=== PATIENT | male | born 1955 | race African-American/Black ===

== ENCOUNTER 2019-12-10 22:34 | Emergency (ER) | payer OTHER ==
[~2019-12-10] VITALS: Ht 182.9 cm; Wt 112.5 kg
[~2019-12-10 22:34] MED LIST: BYSTOLIC10 MG PO; CIALIS5 MG PO; CYMBALTA20 MG PO; TOPROL XL50 MG PO
--- NOTE | 2019-12-10 23:56 | Emergency Department Note ---
History of Present Illnes History of Present Illness Chief Complaint: Respiratory History of Present Illness This is a 64 year old male PRESENTS TO THE ER C/O INTERMITTENT SOB "FOR THE PAST COUPLE OF WEEKS"; PT DENIES CP OR SOB AT THIS TIME; PT WAS SEEN AT DR. AKINS'S TODAY AND TESTED FOR COVID-19 AND PENDING RESULTS; NAD NOTED AT THIS TIME. PT ALSO REPORTS A MILD DRY COUGH FOR PAST 2 WEEKS. Historian: Patient Arrival Mode: Car Onset (how long ago): week(s) (2) Location: LUNGS Quality: SOB Radiation: Reports non-radiation Severity: mild Onset quality: gradual Duration (how long): week(s) (2) Timing of current episode: intermittent Progression: waxing and waning Chronicity: new Context: Denies recent illness, Denies recent surgery Relieving factors: none Exacerbating factors: none Associated symptoms: Reports cough (DRY) (LEWIS BUCKNER MD) Past Medical/Family History Physician Review I have reviewed the patient's past medical and family history. Any updates have been documented here. (LEWIS BUCKNER MD) Past Medical History Recent Fever: No Clinical Suspicion of Infectio: No New/Unexplained Change in Ment: No Past Medical History: Hypertension Other Medical History: GOUTS (LEWIS BUCKNER MD) Social History Smoking Cessation: Never Smoker Alcohol Use: None Any Illegal Drug Use: No (LEWIS BUCKNER MD) Family History Family history of heart diseas: No (LEWIS BUCKNER MD) Other Last Tetanus: UTD (LEWIS BUCKNER MD) Review of Systems Review of Systems Constitutional: Reports no symptoms EENTM: Reports no symptoms Cardiovascular: Reports no symptoms Respiratory: Reports as per HPI Gastrointestinal: Reports no symptoms Genitourinary: Reports no symptoms Musculoskeletal: Reports no symptoms Integumentary: Reports no symptoms Neurological: Reports no symptoms Psychological: Reports no symptoms Endocrine: Reports no symptoms Hematological/Lymphatic: Reports no symptoms (LEWIS BUCKNER MD) Physical Exam Related Data Allergies: Coded Allergies: No Known Allergies (Unverified , 05/27/13) Triage Vital Signs Vital Signs Date Time Temp Pulse Resp B/P (MAP) Pulse Ox O2 Delivery O2 Flow Rate FiO2 12/10/19 23:39 99.7 63 20 108/73 97 Room Air Vital signs reviewed: Yes (LEWIS BUCKNER MD) Physical Exam CONSTITUTIONAL Constitutional: Present well-developed, Present well-nourished HENT HENT: Present normocephalic, Present atraumatic, Present oropharynx clear/moist, Present nose normal HENT L/R: Present left ext ear normal, Present right ext ear normal EYES Eyes: Reports PERRL, Reports conjunctivae normal NECK Neck: Present ROM normal PULMONARY Pulmonary: Present effort normal, Present breath sounds normal CARDIOVASCULAR Cardiovascular: Present regular rhythm, Present heart sounds normal, Present capillary refill normal, Present normal rate GASTROINTESTINAL Abdominal: Present soft, Present nontender, Present bowel sounds normal GENITOURINARY Genitourinary: Present exam deferred SKIN Skin: Present warm, Present dry MUSCULOSKELETAL Musculoskeletal: Present ROM normal NEUROLOGICAL Neurological: Present alert, Present oriented x 3, Present no gross motor or sensory deficits PSYCHOLOGICAL Psychological: Present mood/affect normal, Present judgement normal (LEWIS BUCKNER MD) Results Laboratory Laboratory Laboratory Tests Test 12/11/19 01:10 White Blood Count 5.64 x10e3/uL (4.8-10.8) Red Blood Count 5.06 x10e6/uL (4.3-5.7) Hemoglobin 14.7 g/dL (14.0-18.0) Hematocrit 42.2 % (38.2-49.6) Mean Corpuscular Volume 83.4 fL (81-99) Mean Corpuscular Hemoglobin 29.1 pg (28-32) Mean Corpuscular Hemoglobin Concent 34.8 g/dL (31-35) Red Cell Distribution Width 13.0 % (11.7-14.4) Platelet Count 289 x10e3/uL (140-360) Neutrophils (%) (Auto) 77.3 % (38.7-80.0) Lymphocytes (%) (Auto) 14.9 % (18.0-39.1) Monocytes (%) (Auto) 7.4 % (4.4-11.3) Eosinophils (%) (Auto) 0.0 % (0.0-6.0) Basophils (%) (Auto) 0.0 % (0.0-1.0) Neutrophils # (Auto) 4.4 (2.1-6.9) Lymphocytes # (Auto) 0.8 (1.0-3.2) Monocytes # (Auto) 0.4 (0.2-0.8) Eosinophils # (Auto) 0.0 (0.0-0.4) Basophils # (Auto) 0.0 (0.0-0.1) Absolute Immature Granulocyte (auto 0.02 x10e3/uL (0-0.1) D-Dimer Quantitative (PE/DVT) 1.84 ug/mLFEU (0.00-0.45) Sodium Level 130 mmol/L (136-145) Potassium Level 5.1 mmol/L (3.5-5.1) Chloride Level 96 mmol/L (98-107) Carbon Dioxide Level 22 mmol/L (22-29) Anion Gap 17.1 mmol/L (8-16) Blood Urea Nitrogen 15 mg/dL (7-26) Creatinine 1.27 mg/dL (0.72-1.25) Estimat Glomerular Filtration Rate > 60 ML/MIN (60-) BUN/Creatinine Ratio 12 (6-25) Glucose Level 100 mg/dL (74-118) Calcium Level 9.1 mg/dL (8.4-10.2) Total Bilirubin 0.6 mg/dL (0.2-1.2) Aspartate Amino Transf (AST/SGOT) 61 IU/L (5-34) Alanine Aminotransferase (ALT/SGPT) 49 IU/L (0-55) Alkaline Phosphatase 56 IU/L (40-150) Creatine Kinase 201 IU/L (30-200) Creatine Kinase MB 0.80 ng/mL (0-5.0) Troponin I 0.028 ng/mL (0-0.300) Total Protein 8.2 g/dL (6.5-8.1) Albumin 2.8 g/dL (3.5-5.0) Globulin 5.4 g/dL (2.3-3.5) Albumin/Globulin Ratio 0.5 (0.8-2.0) Lab results reviewed: Yes Laboratory comments PT WITH ELEVATED D-DIMER (LEWIS BUCKNER MD) Imaging Imaging results reviewed: Yes Impressions EXAMINATION: CHEST SINGLE (PORTABLE) INDICATION: Short of breath, cough COMPARISON: None FINDINGS: TUBES and LINES: None. LUNGS: Normal lung volumes. Scattered bilateral patchy airspace opacities No consolidations. PLEURA: No pleural effusion or pneumothorax. HEART AND MEDIASTINUM: The cardiomediastinal silhouette is unremarkable. BONES AND SOFT TISSUES: No acute osseous lesion. Soft tissues are unremarkable. UPPER ABDOMEN: No free air under the diaphragm. IMPRESSION: Findings compatible with multifocal viral pneumonia. Signed by: Pastor Bishop DO on 12/11/2019 1:49 AM Dictated By: PASTOR BISHOP DO 8 Transcribed By: MANJULA on 12/11/19148 (LEWIS BUCKNER MD) Procedures 12 Lead ECG Interpretation ECG Interpretation : ECG: ECG 1 National Account Director: Interpreted by ED physician Date: Dec 10, 2019 Time: 23:46 Rhythm: sinus rhythm Rate: normal BPM: 63 QRS axis: normal ST segments normal: Yes T waves normal: Yes Other findings: no other findings Clinical Impression: normal ECG (LEWIS BUCKNER MD) Assessment & Plan Medical Decision Making MDM PT WITH INTERMITTENT SOB WITH DRY COUGH FOR PAST 2 WEEKS, HAD COVID TEST DONE AT PCP OFFICE TODAY AWAITING RESULTS CBC,CMP, D-DIMER, EKG, CARDIAC ENZYMES, CXR ORDERED TO EVAL FOR MYOCARDIAL INFARCTION, PNEUMONIA, PULMONARY EMBOLISM, ELECTROLYTE ABNORMALITY, PT WITH POSITIVE D-DIMER, CT CHEST PE PROTOCOL ORDERED TO EVAL FOR PULMONARY EMBOLISM [address] ROMAN PENDING ADMISSION OR TRANSFER PENDING BED SITUATION (LEWIS BUCKNER MD) EUNICE Valentine obtained from Dr. Buckner, patient noted to require 2 L of supplemental oxygen in the setting with hypoxia likely due to Covid pneumonia. Case management consult emergency department done. Patient discharged home on home O2. Strict red flags to return given includin. You have been diagnosed with COVID 19 pneumonia. Most patients have mild symptoms and can be treated at home. Expect symptoms to last for 1 2 more we eks. 2. At his stage the treatment is oxygen support and a steroid, named Dexamethasone. 3. The level of oxygen prescribed for home is in Liters per minute (LPM). That means the amount of oxygen (in liters) that flows through the plastic tubing over a one minute period. Home oxygen systems typically can provide up to 5 LPM. You have been prescribed 2 LPM for home. It is very important to know that oxygen is flammable. So the oxygen cannot be within 8 feet of a flame including from cigarettes. 4. It is important to know that dexamethasone can increase blood sugars and blood pressure as well as make some patients feel hyper or cause sleeplessness. So please monitor your blood sugar or blood pressure over the time you are taking. Please notify your doctor if those values increase substantially. 5. Oxygen saturation is a measure of how much oxygen is in your blood. A good level is > 94 %. A bad level is < 90 %. 6. You will be given an Oxygen monitor to test your oxygen 4 X per day and if you feel short of breathe. 7. If you oxygen level goes below 90 % call 911 immediately or come to the ED. As well for low oxygen you can increase the oxygen to 5 LPM until you get phone or ED help. If you think there is something wrong with the oxygen supply call the company that provided the Oxygen device. The name is on the device. 8. Hopefully you will improve over the next one to two weeks. After one week, if your oxygen level is consistently above 94 %, you can check your Oxygen level off of Oxygen. Make sure to wait 30 mins after taking the Oxygen off before checking. If it is consistently above 94 % on just room air and you feel comfortable off of the oxygen, then it is likely time to turn the oxygen in to the company supplying it. At that point call the supplier. The supplier name is on the Oxygen device. 9. Please use the proning techniques as discussed, there is a pamphlet attached for your convenience. (GERSON ROMAN DO) Assessment & Plan Final Impression: (1) COVID-19 (2) Viral pneumonia (3) Tachypnea (LEWIS BUCKNER MD) Depart Disposition: HOME, SELF-CARE Last Vital Signs Date Time Temp Pulse Resp B/P (MAP) Pulse Ox O2 Delivery O2 Flow Rate FiO2 12/10/19 23:39 99.7 63 20 108/73 97 Room Air (LEWIS BUCKNER MD) Home Meds Active Scripts Azithromycin (Z-KRISTOFER) 250 Mg Tablet, 1 PKG PO DIRECTED, #1 PKG 0 Refills Prov:GERSON ROMAN DO 12/11/19 Dexamethasone (Decadron) 6 Mg Tablet, 6 MG PO DAILY, #5 Prov:GERSON ROMAN DO 12/11/19 Reported Medications Nebivolol Hcl (BYSTOLIC) 10 Mg Tablet, 10 MG PO DAILY 05/27/13 Duloxetine Hcl (CYMBALTA) 20 Mg Capcr, 20 MG PO DAILY 05/30/12 LEWIS BUCKNER MD Dec 10, 2019 23:56 GERSON ROMAN DO Dec 11, 2019 18:07
[2019-12-11 01:14] LABS: HEMATOCRIT 42.2 % (38.2-49.6); HEMOGLOBIN 14.7 g/dL (14.0-18.0); LYMPHOCYTES # (AUTO) 0.8 (1.0-3.2); LYMPHOCYTES % 14.9 % (18.0-39.1); MEAN CORPUSCULAR HEMOGLOBIN 29.1 pg (28-32); MEAN CORPUSCULAR HGB CONC 34.8 g/dL (31-35); MEAN CORPUSCULAR VOLUME 83.4 fL (81-99); MONOCYTES # (AUTO) 0.4 (0.2-0.8); MONOCYTES % 7.4 % (4.4-11.3); NEUTROPHILS # (AUTO) 4.4 (2.1-6.9); NEUTROPHILS % 77.3 % (38.7-80.0); PLATELET COUNT 289 x10e3/uL (140-360); RED BLOOD COUNT 5.06 x10e6/uL (4.3-5.7)
[2019-12-11 01:39] LABS: ALANINE AMINOTRANSFERASE 49 IU/L (0-55); ALBUMIN 2.8 g/dL (3.5-5.0); ALBUMIN/GLOBULIN RATIO 0.5 (0.8-2.0); ALKALINE PHOSPHATASE 56 IU/L (40-150); ANION GAP 17.1 mmol/L (8-16); BLOOD UREA NITROGEN 15 mg/dL (7-26); BUN/CREATININE RATIO 12 (6-25); CALCIUM 9.1 mg/dL (8.4-10.2); CARBON DIOXIDE 22 mmol/L (22-29); CHLORIDE 96 mmol/L (98-107); CREATINE KINASE 201 IU/L (30-200); CREATININE, SERUM 1.27 mg/dL (0.72-1.25); EST GLOMERULAR FILTRATION RATE > 60 ML/MIN (60-); GLUCOSE 100 mg/dL (74-118); POTASSIUM 5.1 mmol/L (3.5-5.1); SODIUM 130 mmol/L (136-145)
--- NOTE | 2019-12-11 01:52 | Diagnostic Imaging Report ---
EXAMINATION: CHEST SINGLE (PORTABLE) INDICATION: Short of breath, cough COMPARISON: None FINDINGS: TUBES and LINES: None. LUNGS: Normal lung volumes. Scattered bilateral patchy airspace opacities No consolidations. PLEURA: No pleural effusion or pneumothorax. HEART AND MEDIASTINUM: The cardiomediastinal silhouette is unremarkable. BONES AND SOFT TISSUES: No acute osseous lesion. Soft tissues are unremarkable. UPPER ABDOMEN: No free air under the diaphragm. IMPRESSION: Findings compatible with multifocal viral pneumonia. Signed by: Pastor Bishop DO on 12/11/2019 1:49 AM
[2019-12-11] MEDS ORDERED: SODIUM CHLORIDE 0.9% 50ML 50 ML ONE (02:42)
[2019-12-11] MEDS ORDERED: IOPAMIDOL 370 MG/ML 200 ML INFUS..BTL INJ ONE (02:42)
[2019-12-11] MEDS ORDERED: ACETAMINOPHEN 325 MG TAB PO ONE (03:15)
--- NOTE | 2019-12-11 03:26 | Diagnostic Imaging Report ---
EXAM: CT Chest WITH contrast (PE protocol) 12/11/2019 2:51 AM INDICATION: Short of breath COMPARISON: Same-day chest x-ray TECHNIQUE: Chest was scanned utilizing a multidetector helical scanner from the lung apex through the level of the diaphragm after administration of IV contrast. Thin section reconstructions were obtained with special concentration on the pulmonary arteries. Coronal and sagittal reformations were obtained. Pulmonary embolism protocol was performed. IV CONTRAST: 100 mL of Isovue 370 COMPLICATIONS: None RADIATION DOSE: Total DLP: 551 mGy*cm Estimated effective dose: (DLP x 0.014 x size factor) mSv CTDIvol has been reviewed. It is below the limits set by the Radiation Protocol Committee (RPC). Dose modulation, iterative reconstruction, and/or weight based adjustment of the mA/kV was utilized to reduce the radiation dose to as low as reasonably achievable. FINDINGS: LINES/ TUBES: None. LUNGS AND AIRWAYS: No pulmonary arterial filling defects. Extensive multifocal bilateral groundglass opacities. Airways are normal. PLEURA: The pleural spaces are clear. HEART AND MEDIASTINUM: The thyroid gland is normal. No mediastinal, hilar or axillary lymphadenopathy. The heart is normal in size. There is no pericardial effusion. Main pulmonary artery measures 3.9 cm in diameter, dilated, the ascending thoracic aorta measures 4 cm in diameter, borderline ectatic. UPPER ABDOMEN: Unremarkable. BONES: Degenerative changes. SOFT TISSUES: Unremarkable. IMPRESSION: Extensive multifocal viral pneumonia. Dilated main pulmonary artery can be seen with pulmonary hypertension. Borderline ascending thoracic aorta ectasia. Signed by: Pastor Bishop DO on 12/11/2019 3:23 AM
[2019-12-11] MEDS ORDERED: AZITHROMYCIN 500MG/NS 250 ML 250 ML IV ONE (03:30)
[2019-12-11] MEDS ORDERED: CEFTRIAXONE SOD 1 GM/NS 50 ML 50 ML IV SCH (03:30)
--- NOTE | 2019-12-11 07:09 | NUR ---
BEDSIDE REPORT GIVEN TO Mirna PEPE RN.
[2019-12-11] MEDS ORDERED: AZITHROMYCIN250 MG PO (08:56)
[2019-12-11] MEDS ORDERED: DECADRON6 MG PO (08:56)
[2019-12-11] MEDS ORDERED: DEXAMETHASONE SOD PHOS 10 MG/1 ML VIAL IV SCH (09:00)
--- NOTE | 2019-12-11 10:04 | NUR ---
Spoke to pt over the phone regarding home O2. Gave choice for [facility]. Signed choice letter placed with pt's chart. Referral faxed to [facility] at [phone]. Jay raman [facility] was notified and will deliver portable.
--- NOTE | 2019-12-11 10:09 | NUR ---
Multiple attempts made with patient for him to contact Case Resource Manager.
[2019-12-11 10:23] VITALS: BP 106/73
--- NOTE | 2019-12-11 13:34 | NUR ---
WENT TO DELIVER O2 TO PT, PT HAD BEEN DISCHARGED, CALLED AND LEFT MESSAGE FOR PT TO PLEASE RETURN CALL TO [employer]AC[employer] SUPPORT COORDINATOR. [phone]. IF PT UNABLE TO FACULTY SUPPORT COORDINATOR O2 THEN IT NEEDS TO BE RETURNED TO COMPANY FOR CREDIT.
--- NOTE | 2019-12-11 14:58 | NUR ---
Informed Jay with [facility] that pt was discharged home without oxygen. Asked that they deliver to pt's house. He states he will call it into the office.
== END 2019-12-11 11:40 | disposition home or self-care (01) ==
LOC: ER 23:50
DX: U07.1 COVID-19 (principal); J12.9 Viral pneumonia, unspecified; R06.82 Tachypnea, not elsewhere classified; R05 Cough; I10 Essential (primary) hypertension; M10.9 Gout, unspecified
CPT/HCPCS: 36415; 71045; 71260; 80053; 82550; 82553; 84484; 85025; 85379; 87635; 93005; 99285; J0456; J0696; J1100; Q9967; U0002

== ENCOUNTER → 2021-06-22 | Day surgery (SDC) | payer OTHER ==
[2021-06-21 11:23] LABS: BASOPHILS % 0.9 % (0.0-1.0); HEMATOCRIT 43.8 % (38.2-49.6); LYMPHOCYTES # (AUTO) 1.4 (1.0-3.2); LYMPHOCYTES % 40.9 % (18.0-39.1); MEAN CORPUSCULAR VOLUME 84.6 fL (81-99); MONOCYTES # (AUTO) 0.6 (0.2-0.8); MONOCYTES % 16.3 % (4.4-11.3); NEUTROPHILS # (AUTO) 1.4 (2.1-6.9); NEUTROPHILS % 41.9 % (38.7-80.0); PLATELET COUNT 208 x10e3/uL (140-360); RED BLOOD COUNT 5.18 x10e6/uL (4.3-5.7); RED CELL DISTRIBUTION WIDTH 13.6 % (11.7-14.4)
[~2021-06-22] MED LIST changes: +ALLOPURINOL300 MG PO; +ASHWAGANDHA RO300 MG PO; +AZITHROMYCIN250 MG PO; +DECADRON6 MG PO; +FENTANYL CITRATE/PF 100MCG/2 ML INJ ONE; +LIDOCAINE HCL 2% LOCAL INJ 5 ML SDV VIAL INJ ONE; +LOSARTAN POTASS25 MG PO; +MIDAZOLAM HCL 2 MG/2 ML VIAL ONE; +PROPOFOL IV EMULSION 10 MG/ML 20 ML VIAL ONE; +REVATIO20 MG PO; +[UNRECOGNIZED DRUG - OTHER] PO
[2021-06-22 13:30] VITALS: BP 119/90
== END | disposition home or self-care (01) ==
LOC: OR 10:13
PROVIDERS: ATTEND Internal Medicine Gastroenterology
DX: Z09 Encounter for follow-up examination after completed treatment for conditions other than malignant neoplasm (principal); Z86.010 Personal history of colon polyps; K59.00 Constipation, unspecified; K64.8 Other hemorrhoids; I10 Essential (primary) hypertension; R00.1 Bradycardia, unspecified; M10.9 Gout, unspecified; N52.9 Male erectile dysfunction, unspecified; Z01.810 Encounter for preprocedural cardiovascular examination; Z01.812 Encounter for preprocedural laboratory examination; Z20.822 Contact with and (suspected) exposure to COVID-19; Z79.899 Other long term (current) drug therapy; Z68.29 Body mass index [BMI] 29.0-29.9, adult; Z87.891 Personal history of nicotine dependence
CPT/HCPCS: 36415; 45378; 85025; 93005; J2001; J2250; J3010; U0002